=== PATIENT | female | born 1955 | race African-American/Black ===

== ENCOUNTER 2017-01-15 | Emergency (ER) | payer MEDICARE, MEDICAID ==
[2015-08-20 07:29] VITALS: BMI 45.8
[~2017-01-15] MED LIST: ASPIRIN EC81 M1; ASPIRIN EC81 M1 PO; CELEBREX200 MG PO; HYDROCHLOROTH12.5 M1 PO; ISOSORBIDE MONO30 M1 PO; NITROSTAT0.4 MG SL; PLAVIX75 MG PO; PRINIVIL20 MG PO; ZOCOR20 MG PO
[2017-01-15 00:42] LABS: BASOPHILS 0.3 % (0-2); EOSINOPHILS 1.6 % (0-7); HEMOGLOBIN 11.5 g/dL (12-16); IMMATURE GRANULOCYTES 0.3 % (0-5); MCH 26.4 pg (26.0-34.0); MCHC 31.1 g/dL (31.0-37.0); MCV 85.1 fL (80.0-100.0); MONOCYTES 9.1 % (2-11); NEUTROPHILS 54.7 % (40-80); PLATELET COUNT 218 10x3/uL (130-400); RBC 4.35 10x6/uL (4.00-5.40); RDW 13.7 % (11.5-14.5); WBC 3.9 10x3/uL (4.8-10.8)
[2017-01-15 01:03] LABS: APTT 26.1 SECONDS (22.8-39.4); INR 0.88 (0.85-1.17); PROTIME 11.8 SECONDS (11.6-15.0)
[2017-01-15 01:04] LABS: ALBUMIN 3.4 g/dL (3.4-5.0); ALKALINE PHOSPHATASE 74 U/L (46-116); ALT (SGPT) 26 U/L (10-68); BILIRUBIN - TOTAL 0.13 mg/dL (0.2-1.3); CALC OSMOLALITY 282 mosm/kg (275-300); CALCIUM 8.8 mg/dL (8.5-10.1); CARBON DIOXIDE 28.3 mmol/L (21.0-32.0); CHLORIDE - SERUM 105 mmol/L (98-107); CREATININE - SERUM 0.7 mg/dL (0.6-1.3); GLUCOSE 95 mg/dL (74-106); POTASSIUM - SERUM 3.6 mmol/L (3.5-5.1); PROTEIN - SERUM 7.7 g/dL (6.4-8.2); SODIUM 142 mmol/L (136-145); UREA NITROGEN 13 mg/dL (7-18); eGFR NON AFRICAN AMERICAN 90 mL/min (90-120)
[2017-01-15 01:10] LABS: CREATINE KINASE 119 UL (21-215)
[2017-01-15 01:12] LABS: TROPONIN-I < 0.017 ng/mL (0.000-0.060)
== END 2017-01-15 04:02 | disposition home or self-care (01) ==
LOC: D.ER
PROVIDERS: Emergency Medicine; Nurse Practitioner Acute Care
DX: R07.9 Chest pain, unspecified (principal); I10 Essential (primary) hypertension; E66.9 Obesity, unspecified

== ENCOUNTER 2017-03-02 09:08 | Outpatient (CLI) | payer MEDICARE, MEDICAID ==
--- NOTE | ~2017-03-02 | HEMODYNAMI ---
PATIENT:MARIBEL WANG MEDICAL RECORD: [id number] : 57 LOCATION:DMiriamCAT ADMISSION DATE: 03/02/17 Generatedon:03/02/201711:11 Patient name: MARIBEL WANG Patient #: [id number] SSN: : 1955 Date of study: 03/02/2017 Page: Of Hemodynamic Procedure Report Patient Data Patient Demographics Procedure consent was obtained First Name: MARIBEL Gender: Female Last Name: KATHLEEN : 1955 [facility] Initial: JOSE Age: 61 year(s) Patient #: [id number] Race: Black Additional ID: [id number] Contact details Address: [address] [place] [address] e10 State: [place] City: [place] Zip code: [address] Past Medical History Allergies: No known allergies Admission Admission Data Admission Date: 03/02/2017 Admission Time: 9:08 Weight (lbs.): 240.31 Weight (kg.): 109 Lab Results Lab Result Date: 03/02/2017 Lab Result Time: 0:00 Biochemistry Name Units Result Min Max BUN mg/dl 10 --(-*--)-- 7 18 Creatinine mg/dl 0.5 -*(----)-- 0.6 1.3 CBC Name Units Result Min Max Hemoglobin g/dl 11.6 *-(----)-- 13.5 17.5 Procedure Procedure Types Cath Procedure Diagnostic Procedure C [facility] w/Coronaries PCI Procedure Coronary Stent Initial Miscellaneous Procedures Moderate Sedation up to 30 minutes Procedure Description Procedure Date Procedure Date: 03/02/2017 Procedure Start Time: 10:45 Procedure End Time: 11:11 Procedure Staff Name Function Saman Valencia MD Performing Physician Colten Cooney RN Nurse Nazario Zelaya RT Monitor Albertina Mckay RT Scrub Procedure Data Cath Procedure Fluoroscopy Diagnostic fluoroscopy Total fluoroscopy Time: 6.9 time: 6.9 min min Diagnostic fluoroscopy Total fluoroscopy dose: dose: 1159 mGy 1159 mGy Contrast Material Contrast Material Type Amount (ml) Isovue 300 131 Entry Location Entry Primary Successful Side Size Upsize Upsize Entry Closure Succes sful Closure Location (Fr) 1 (Fr) 2 (Fr) Remarks Device Remarks Femoral Right 5 Fr 6 Fr Exoseal artery Short Estimated blood loss: 10 ml Diagnostic catheters Device Type Used For End Catheter Placement Cordis 5Fr Pigtail Procedure Catheter (MP) Cordis 5Fr JL 4.0 Procedure Catheter (MP) Cordis 5Fr 3DRC Catheter Procedure (MP) Procedure Complications No complications Procedure Medications Medication Administration Route Dosage Oxygen NC 2 l/min Heparin Flush Bag added to field 2 bags (1000units/500ml NS) 0.9% NaCl I.V. ml/hr Fentanyl I.V. 50 mcg Versed I.V. 1 mg Fentanyl I.V. 50 mcg Versed I.V. 1 mg Heparin Bolus I.V. 4000 units Heparin Bolus I.V. 4000 units Hemodynamics Rest HGB: 11.6 (g/dl) Heart Rate: 73 (bpm) Pressure Samples Time Site Value (mmHg) Purpose Heart Use Rate(bpm) 10:50 AO 121/71(93) Snapshot 67 Snapshots Pre Cath Intra NCS Post Cath Vital Signs Time Heart Resp SPO2 etCO2 UU2drlk NIBP (mmHg) Rhythm Pain Sedation Rate (ipm) (%) (mmHg) (mmHg) Status Level (bpm) 10:36:16 78 20 98 0 0 136/79(122) NSR 0 (11) 10(A) , No pain 10:41:01 71 19 100 0 0 126/69(99) NSR 0 (11) 10(A) , No pain 10:45:46 59 17 100 0 0 121/64(91) NSR 0 (11) 9(A) , No pain 10:50:28 66 18 100 0 0 116/62(88) NSR 0 (11) 9(A) , No pain 10:55:13 68 16 100 0 0 116/60(88) NSR 0 (11) 9(A) , No pain 11:00:00 71 18 100 0 0 90/39(67) NSR 0 (11) 9(A) , No pain 11:05:18 75 19 100 0 0 108/48(89) NSR 0 (11) 9(A) , No pain 11:10:00 65 18 100 0 0 124/68(102) NSR 0 (11) 10(A) , No pain Medications Time Medication Route Dose Verified Delivered Reason Notes Effectiveness by by 10:36:22 Oxygen NC 2 Saman Colten Per physician l/min Annie Cooney RN 10:36:33 Heparin Flush added 2 Saman Abel used for Bag to bags Annie Cooney RN procedure (1000units/500ml field NS) 10:36:41 0.9% NaCl I.V. ml/hr Saman Abel Per physician Annie Cooney RN 10:41:21 Fentanyl I.V. 50 Saman Abel for sedation mcg Annie Cooney RN 10:41:29 Versed I.V. 1 mg Saman Tsaiy for sedation Annie Cooney RN 10:44:56 Fentanyl I.V. 50 Saman Colten for sedation mcg Annie Cooney RN 10:45:02 Versed I.V. 1 mg Saman Abel for sedation Annie Cooney RN 10:54:55 Heparin Bolus I.V. 4000 Saman Tsaiy for units Annie Cooney RN anticoagulation 11:09:00 Heparin Bolus I.V. 4000 Saman Colten for units Annie Cooney RN anticoagulation Procedure Log Time Note 10:00:30 Colten Cooney RN sent for patient. Start room use. 10:20:31 Time tracking: Regular hours 10:20:40 Plan of Care:Hemodynamics will remain stable., Cardiac rhythm will remain stable., Comfort level will be maintained., Respiratory function will remain adequate., Patient/ family verbilizes understanding of procedure., Procedure tolerated without complication., Recovers from procedure without complications.. 10:29:44 Patient received from Pre/Post Procedure Room to CCL 1 Alert and oriented. Tansferred to table in Supine position. 10:29:45 Warm blankets applied, and carol hugger turned on for patient comfort. 10:29:46 Correct patient and procedure confirmed by team. 10::47 Signed procedure consent form obtained from patient. 10:29:47 ECG and BP/O2 sat monitors applied to patient. 10:35:14 Vital chart was started 10:36:22 Oxygen 2 l/min NC was administered by Colten Cooney RN; Per physician; 10:36:33 Heparin Flush Bag (1000units/500ml NS) 2 bags added to field was administered by Colten Cooney RN; used for procedure; 10:36:41 0.9% NaCl ml/hr I.V. was administered by Colten Cooney RN; Per physician; 10:39:29 Baseline sample Acquired. 10:39:33 Rhythm: sinus rhythm 10:39:35 Full Disclosure recording started 10:39:45 H&P Date Dictated: 03/02/2017 New H&P dictated by physician.. 10:39:46 Pre-procedure instructions explained to patient. 10:39:46 Pre-op teaching completed and patient verbalized understanding. 10:39:48 Family in waiting room. 10:39:49 Patient NPO since Midnight. 10:39:52 Is the patient allergic to Iodine/contrast media? No. 10:39:53 Is patient on blood thinner?Yes 10:39:55 ACC The patient was administered the following blood thiners within the last 24 hours: ACCPlavix 10:39:57 Patient diabetic? No. 10:39:59 Patient not . Patient is over age 55. 10:40:01 Previous problem with sedation/anesthesia? No ? 10:40:02 Snore? Yes 10:40:03 Sleep apnea? No 10:40:04 Deviated septum? No 10:40:05 Opens mouth fully? Yes 10:40:06 Sticks out tongue? Yes 10:40:08 Airway obstruction? No ? 10:40:09 Dentures? No ? 10:40:12 Pre procedure: right dorsailis pedis pulse 1+ Palpable, but thready & weak; easily obliterated 10:40:36 No Radial due to difficulty with intervention last cath. 10:40:39 Patient pain scale 0/10 ?. 10:40:52 IV patent on arrival in left forearm with 0.9% NaCl at [facility]. 10:40:54 Lab results completed and on chart. 10:40:56 Right groin area was prepped with chlora-prep and draped in sterile fashion 10:40:57 Alarms reviewed by RMiriam N. 10:40:58 Sharps counted by scrub and verified by R.N. 10:40:59 --------ALL STOP TIME OUT------ 10:41:00 Final Timeout: patient, procedure, and site verified with staff and physician. All members of the team are in agreement. 10:41:01 Right groin site verified by team. 10:41:04 Physical assessment completed. ASA score P 2 - A patient with mild systemic disease as per Saman Valencia MD. 10:41:07 Sedation plan: IV Moderate Sedation Versed, Fentanyl 10:41:21 Fentanyl 50 mcg I.V. was administered by Colten Cooney RN; for sedation; 10:41:29 Versed 1 mg I.V. was administered by Colten Cooney RN; for sedation; 10:42:08 Use device set Femoral Dx 10:42:10 Tegaderm 4 x 4 opened to sterile field. 10:42:10 Acist Hand Control opened to sterile field. 10:42:11 Acist Manifold opened to sterile field. 10:42:12 Acist Syringe opened to sterile field. 10:42:12 Bag Decanter opened to sterile field. 10:42:13 Medline Cath Pack opened to sterile field. 10:42:13 Terumo 5Fr [place] Sheath opened to sterile field. 10:42:13 St Xavier 260cm J .035 wire opened to sterile field. 10:42:15 Diagnostic Infinity 5Fr Multipack catheter opened to sterile field. 10:44:56 Fentanyl 50 mcg I.V. was administered by Colten Cooney RN; for sedation; 10:45:02 Versed 1 mg I.V. was administered by Colten Cooney RN; for sedation; 10:45:06 Procedure started. 10:45:16 Local anesthetic to right femoral artery with Lidocaine 2% by Saman Valencia MD.INITIAL ACCESS ONLY 10:48:30 Lab Result : Hemoglobin 11.6 g/dl 10:48:30 Lab Result : Creatinine 0.5 mg/dl 10:48:30 Lab Result : BUN 10 mg/dl 10:48:39 Patient Weight : 240.31 lbs 10:48:55 A 5 Fr sheath was inserted into the Right Femoral artery 10:49:00 A Cordis 5Fr Pigtail Catheter (MP) was advanced over the wire and used for Procedure. 10:49:25 LV angiography performed. 10:49:26 LV gram done using MACK 10:49:33 EF : 55 % 10:49:37 Injector settings: Ml/sec: 7, Volume: 15, 10:49:39 Catheter removed. 10:49:45 A Cordis 5Fr JL 4.0 Catheter (MP) was advanced over the wire and used for Procedure. 10:50:38 LCA angiography performed. 10:51:25 Catheter removed. 10:51:40 A Cordis 5Fr 3DRC Catheter (MP) was advanced over the wire and used for Procedure. 10:52:05 RCA angiography performed. 10:52:14 Catheter removed. 10:52:53 Terumo 6Fr [place] Sheath opened to sterile field. 10:52:53 Money360 BasixCompak Inflation Kit opened to sterile field. 10:52:53 Go TakeChargeisper J 300cm 0.014 guide wire opened to sterile field. 10:52:54 Medtronic Launcher 6Fr HS II guide catheter opened to sterile field. 10:54:17 Sheath upsized to a 6 Fr Short. 10:54:37 Study PCI Site: [place] pRCA has 85% stenosis. 10:54:51 ACC Pre-intervention EVON Flow is 3. 10:54:55 Heparin Bolus 4000 units I.V. was administered by Colten Cooney RN; for anticoagulation; 10:55:54 6 Fr HS 2 guide catheter was inserted over the wire 10:56:03 Guide Catheter removed. unable to cannulate vessel. 10:56:13 Medtronic Launcher 6Fr AR 1.0 guide catheter opened to sterile field. 10:56:28 6 Fr AR 1 guide catheter was inserted over the wire 10:56:34 Guide Catheter removed. damaged. 10:57:12 Medtronic Launcher 6Fr AR 1.0 guide catheter opened to sterile field. 10:57:18 6 Fr AR 1 guide catheter was inserted over the wire 10:58:07 Whisper wire advanced. 10:59:23 Wire advanced across lesion. 10:59:43 The [place] OTW 3.5 x 18 stent was advanced then removed because of failure to cross lesion 11:01:09 Inflation number: 1 A Mozec Rx 3.0 x 14 balloon was prepped and advanced across the Prox RCA, then inflated to 17 JAIMIE for 0:10 (min:sec). 11:01:29 Multiple inflations made at 17 Atms. 11:01:54 Balloon removed over the wire. 11:03:34 Inflation Number: 2 A Adrian OTW 3.5 x 18 stent was prepped and advanced across the Prox RCA. The stent was deployed at 21 JAIMIE for 0:10 (min:sec). 11:04:22 Stent catheter was removed intact over wire. 11:05:30 Inflation Number: 3 A Adrian OTW 3.5 x 12 stent was prepped and advanced across the Prox RCA. The stent was deployed at 13 JAIMIE for 0:10 (min:sec). 11:05:55 ACC Post-intervention EVON Flow is 3. 11:05:56 Stent catheter was removed intact over wire. 11:05:56 Wire removed. 11:05:57 Guide catheter removed. 11:06:09 Cordis 6Fr Exoseal opened to sterile field. 11:06:42 Sheath removed intact; hemostasis achieved with Exoseal to the Right Femoral artery. 11:06:46 Procedure ended.(Physican Out) 11:07:21 Fluoroscopy time 06.90 minutes. 11:07:24 Flurop Dose total: 1159 11:07:24 Fluoroscopy dose: 1159 mGy 11:07:31 Contrast amount:Isovue 300 131ml. 11:07:33 Sharps counted by scrub and verified by R.N. 11:07:38 Insertion/operative site no bleeding no hematoma. 11:07:41 Post-op/insertion site Right Femoral artery dressed using a 4 x 4 and Tegaderm. 11:07:42 Post Procedure Pulses reassessed and unchanged 11:07:45 Post-procedure physical assessment completed. ASA score P 2 - A patient with mild systemic disease as per Saman Valencia MD. 11:07:47 Post procedure rhythm: unchanged. 11:07:50 Estimated blood loss: 10 ml 11:07:52 Post procedure instruction explained to patient.Patient verbalizes understanding. 11:07:52 Patient needs reinforcement of post procedure teaching. 11:08:01 Procedure type changed to Cath procedure, Diagnostic procedure, LHC, LHC w/Coronaries, PCI procedure, Coronary Stent Initial, Miscellaneous Procedures, Moderate Sedation up to 30 minutes 11:08:05 Procedure Complication : No complications 11:08:32 Procedure and supply charges have been captured, reviewed, submitted and are correct. 11:09:00 Heparin Bolus 4000 units I.V. was administered by Colten Cooney RN; for anticoagulation; 11:10:54 Vital chart was stopped 11:10:55 See physician's report for complete and final results. 11:10:59 Report given to Pre/Post Procedure Room. 11:11:02 Patient transfered to Pre/Post Procedure Room with Stretcher. 11:11:06 Procedure ended. 11:11:06 Full Disclosure recording stopped 11:11:16 End room use (Document Last) Intervention Summary Intervention Notes Time ActionType Lesion and Equipment Action# Pressure Duration Attributes Used 10:59:43 Discard Prox RCA Adrian OTW Stent 3.5 x 18 stent 11:01:09 Inflate Prox RCA Mozec Rx 1 17 00:10 balloon 3.0 x 14 balloon 11:03:34 Place stent Prox RCA [place] OTW 2 21 00:10 3.5 x 18 stent 11:05:30 Place stent Prox RCA [place] OTW 3 13 00:10 3.5 x 12 stent Device Usage Item Name Manufacture Quantity Catalog Hospital Part Current Mini mal Lot# / Number Charge Number Stock Stock Serial# Code [facility] 4 1 [id number] [id number] 111982 [id number] 5 x 4 Acist Hand Acist 1 45502 997360 429480 693018 5 Control [employer] Inc Acist Acist 1 78175 324191 208295 365380 5 Manifold Medical Systems Inc Acist Acist 1 20856 514523 532998 321260 20 Syringe Medical Systems Inc Bag Microtek 1 2002S 993589 13379 051184 5 Decanter Medical Inc. Medline Cardinal 1 [id number] 477951 16619 991961 5 Cath Pack Health Terumo 5Fr Terumo 1 [id number] 237603 055019 222374 [address] [facility] 1 029187 004879 907616 856603 30 260cm J .035 wire Diagnostic Cardinal 1 [id number] 576227 74803 823987 30 Infinity Health 5Fr Multipack catheter Cordis 5Fr Cardinal 1 018524 5 Pigtail Health Catheter (MP) Cordis 5Fr Cardinal 1 496898 5 JL 4.0 Health Catheter (MP) Cordis 5Fr Cardinal 1 013024 5 3DRC Health Catheter (MP) Terumo 6Fr Terumo 1 JLI900 804553 690720 966756 40 [place] Sheath Merit Merit 1 AY9784 544879 422215 956202 15 BasixVa Hospitalk Medical Inflation Kit Go Go 1 [id number] 765547 742986 599621 5 Whisper J Vascular 300cm 0.014 guide wire Medtronic Medtronic 1 [id number] 293156 34263 492130 1 Launcher 6Fr HS II guide catheter Medtronic Medtronic 2 [id number] 806014 37714 502500 1 Launcher 6Fr AR 1.0 guide catheter [place] OTW Medtronic 1 [id number] 154744 8549557 939363 5 [id number] 3.5 x 18 stent Mozec Rx Cardinal 1 [id number] 932214 592524190 592510 5 UMOA71 3.0 x 14 Health balloon Adrian OTW Medtronic 1 [id number] 583185 8424884 946708 5 [id number] 3.5 x 12 stent Cordis 6Fr Cardinal 1 EX600 401267 452343 647028 10 [facility] Health Signature Audit [place] Stage Time Signature Unsigned Intra-Procedure 03/02/2017 Nazario Zelaya 11:11:31 AM RT(R) Signatures Monitor : Nazario Zelaya RT Signature : Date : Time : [place] [id number] [place] [address]
[2017-03-02] MEDS ORDERED: PROTONIX40 MG PO (09:40)
[2017-03-02] MEDS ORDERED: CARAFATE1 G/10 ML PO (09:42)
[2017-03-02] MEDS ORDERED: VALIUM5 MG PO (09:42)
[2017-03-02 09:49] VITALS: BP 125/76; BMI 44.0
[2017-03-02 10:08] LABS: CALC OSMOLALITY 277 mosm/kg (275-300); CALCIUM 9.3 mg/dL (8.5-10.1); CARBON DIOXIDE 28.1 mmol/L (21.0-32.0); CHLORIDE - SERUM 107 mmol/L (98-107); CREATININE - SERUM 0.5 mg/dL (0.6-1.3); GLUCOSE 106 mg/dL (74-106); POTASSIUM - SERUM 3.5 mmol/L (3.5-5.1); SODIUM 140 mmol/L (136-145); UREA NITROGEN 10 mg/dL (7-18); eGFR NON AFRICAN AMERICAN > 90 mL/min (90-120)
[2017-03-02 10:24] LABS: BASOPHILS 0.3 % (0-2); EOSINOPHILS 1.6 % (0-7); HEMATOCRIT 37.2 % (36.0-48.0); HEMOGLOBIN 11.6 g/dL (12-16); IMMATURE GRANULOCYTES 0.3 % (0-5); LYMPHOCYTES 28.7 % (15-50); MCH 25.9 pg (26.0-34.0); MCHC 31.2 g/dL (31.0-37.0); MEAN PLATELET VOLUME 8.8 fL (7.4-10.4); MONOCYTES 11.9 % (2-11); NEUTROPHILS 57.2 % (40-80); PLATELET COUNT 245 10x3/uL (130-400); RBC 4.48 10x6/uL (4.00-5.40); RDW 13.3 % (11.5-14.5); WBC 3.1 10x3/uL (4.8-10.8)
--- NOTE | 2017-03-02 11:35 | NUR ---
1132 PT DENIES ANY C/O. DRESSING CDI RIGHT GROIN. PT DENIES NEEDS AT THIS TIME. CALL LIGHT IN REACH.
--- NOTE | 2017-03-02 11:50 | NUR ---
1150 PT SLEEPING, AWAKENS EASILY, DENIES ANY C/O. DRESSING CDI, FAMILY AT BEDSIDE.
--- NOTE | 2017-03-02 12:15 | NUR ---
1215 PT DENIES ANY C/O, DRESSING CDI. PEDAL PULSES PALPABLE, FAMILY AT BEDSIDE.
--- NOTE | 2017-03-02 12:19 | NUR ---
1120 RECEIVED PT FROM ALLERGY SPECIALIST. PT IS DROWSY. DENIES ANY C/O PAIN OR NAUSEA. IV PATENT AND INFUSING PER ORDERS. NSR, DENIES ANY C/O CHEST PAIN. DRESSING TO RIGHT GROIN IS CDI, AREA IS SOFT AND NONTENDER. PEDAL PULSES PALPABLE.
--- NOTE | 2017-03-02 13:45 | NUR ---
1345 PT AWAKE, DENIES ANY C/O. DRESSING TO RIGHT GROIN IS CDI, AREA IS SOFT AND NONTENDER. PEDAL PULSES PALPABLE, FAMILY AT BEDSIDE.
--- NOTE | 2017-03-02 14:00 | NUR ---
1300 DRESSING CDI, AREA SOFT AND NONTENDER. PT DENIES ANY C/O. PEDAL PULSES PALPABLE, CAP REFILL IS BRISK. VSS.
--- NOTE | 2017-03-02 14:00 | NUR ---
1400 PT SLEEPING, AWAKENS EASILY. DENIES ANY C/O. DRESSING TO RIGHT GROIN IS CDI, AREA IS SOFT AND NONTENDER. SISTER AT BEDSIDE, CALL LIGHT IN REACH.
--- NOTE | 2017-03-02 14:49 | NUR ---
1445 HOB ELEVATED 45 DEGRESS, DRESSING RIGHT GROIN IS CDI, AREA IS SOFT AND NONTENDER. SANDWICH AND PO FLUIDS SERVED.
--- NOTE | 2017-03-02 15:19 | NUR ---
1515 PT HAS DERICK SANDWICH WITH NO C/O NAUSEA. IV DC'D WITH CATH INTACT. REVIEWED DC INSTRUCTIONS WITH PT AND SISTER WHO VERBALZIZE UNDERSTANDING. PLAVIX PRESCRIPTION, STENT CARD, HOMECARE BOOKLET AND EXOSEAL BOOKLET TO PATIENT. PT DRESSING FOR DC TO HOME.
--- NOTE | 2017-03-02 15:45 | NUR ---
1540 ASSISTED PT TO THE BATHROOM, PT HAS VOIDED QS. AWAITING PT'S RIDE HOME. 1545 PT'S RIDE IS HERE, ESCORTED PT TO PRIVATE AUTO VIA WC WITH DAUGHTER DRIVING HER HOME. PT DENIES ANY C/O UPON DC.
--- NOTE | 2017-03-04 13:09 | HP ---
PATIENT: MARIBEL MURRAY MEDICAL RECORD: [id number] ACCOUNT: [id number] LOCATION:ARTHUR : 57 ADMISSION DATE: 03/02/17 HISTORY AND PHYSICAL EXAMINATION ADMITTING DIAGNOSES: 1. Angina. 2. Abnormal nuclear stress test. 3. Hypertension. HISTORY OF PRESENT ILLNESS: Mrs. Murray presents with increasing anginal symptomatology, underwent nuclear stress testing revealing significant reversible ischemia, now brought for cardiac catheterization. PHYSICAL EXAMINATION: GENERAL APPEARANCE: Well-nourished, well-developed, appears stated age. Level of distress, comfortable. PSYCHIATRIC: Mental status, alert, normal affect. Orientation, oriented to time, place and person. EYES: Lids and conjunctiva, noninjected. No discharge, no pallor. ENT: Lips, teeth, gums, normal dentition. Oropharynx, no cyanosis, no pallor. NECK: Carotid arteries, bilateral normal upstroke, no bruits, no thrills. JUGULAR VEINS: No jugular venous pressure or distention. CERVICAL LYMPH NODES: Nontender, nonenlarged. THYROID: Not enlarged. Nontender. No nodules. LUNGS: Respiratory effort, unlabored. CHEST: Normal curvature. No thoracic deformity. No chest wall tenderness. Percussion, resonant. Auscultation, clear. No wheezes, no rales, no rhonchi. CARDIOVASCULAR: Precordial exam, nondisplaced. No heaves or pericardial thrills. Rate and rhythm, regular. Heart sounds, normal S1, normal S2. No S3, no gallop, no rub. Systolic murmur, not heard. Diastolic murmur, not heard. EXTREMITIES: No cyanosis, no edema. Peripheral pulses, full and equal in all extremities, except as noted. No bruits appreciated. ABDOMEN: Soft, nondistended. Normal aorta. No bruit. Nontender. No masses. Liver, nontender, no hepatomegaly. Spleen, nontender, no splenomegaly. MUSCULOSKELETAL: No joint tenderness. No joint swelling. No erythema. NEUROLOGICAL: Normal gait, normal strength, normal tone. SKIN: Warm and dry. REVIEW OF SYSTEMS: The patient reports easy bruising but reports no swollen glands. The patient reports no fever, no night sweats, no significant weight gain, no significant weight loss. No significant exercise tolerance. The patient reports no dry eyes, no irritation, no vision change. Patient reports no difficulty hearing and no ear pain. Patient reports no frequent nose bleeds or nose and sinus problems. Patient reports on arm pain on exertion. No shortness of breath while lying down. No history of heart murmur. Patient reports no cough, no wheezing or coughing up blood. Patient reports no abdominal pain, no vomiting. Normal appetite. No diarrhea and not vomiting blood. No nausea and no constipation. Patient reports no incontinence. No difficulty urinating. No hematuria. No increased frequency. Patient reports no muscle aches. No weakness, no arthralgias, no back pain. No swelling of the extremities. Patient reports no abnormal mole, no jaundice, no rashes. Reports no loss of consciousness. No weakness and no numbness. No seizures, dizziness, or headaches. The patient reports no depression, no sleep disturbance, feeling safe in a relationship and no alcohol abuse. Patient reports on fatigue. HISTORY AND PHYSICAL [id number] MARIBEL MURRAY Reports no runny nose or sinus pressure. No itching, no hives, and no frequent sneezing. OVERALL IMPRESSION: Chest pain compatible with angina with abnormal nuclear stress test, most likely she has hemodynamically significant coronary artery disease. We will proceed with coronary angiography. Further care depends upon findings of the angiography. TRANSINT:[id number] Voice Confirmation ID: [id number] DOCUMENT ID: [id number] EMIL TORRE MD at 1309 CC: [id number] DICTATION DATE: 03/02/17919 RAG GRADER: 03/02/17 1002 DEP CLI 03/02/17 [place] [id number] [place] [id number]
--- NOTE | 2017-03-04 13:09 | OP ---
PATIENT NAME: MARIBEL WANG MEDICAL RECORD: [id number] :57 LOCATION:D.CAT ADMISSION DATE: SURGEON: EMIL TORRE MD DATE OF OPERATION: 03/02/2017 PROCEDURES: 1. PTCA stent RCA. 2. Left heart catheterization. 3. Selective coronary angiography. 3. Left ventriculogram. INDICATION: Angina and coronary artery disease. PROCEDURE IN DETAIL: After informed consent was obtained and after a detailed explanation of the risks, benefits as well as alternative therapies, the patient elected to proceed with angiogram and angioplasty. The right femoral area was prepped and draped in normal sterile fashion. The right femoral artery was cannulated via modified Seldinger technique with placement of 6-[place] Citizen sheath. All catheters exchanged through this sheath. FINDINGS: The left ventriculogram was performed in standard 30-degree MACK view, reveals good cardiac wall motion throughout all segments. Overall ejection fraction estimated at 60%. SELECTIVE CORONARY ANGIOGRAPHY: 1. Left main showed no significant angiographic disease. 2. Left anterior descending has previously placed stents that are widely patent. 3. Left circumflex shows moderate irregularities, but no flow-limiting stenosis. 4. The right coronary has previously placed stents with 90% in-stent restenosis. PTCA STENT OF THE RIGHT CORONARY: The stent used was 3.5 x 18 and 3.5 x 12, both Adrian stents. Result was 0% residual stenosis. OVERALL IMPRESSION: Successful percutaneous transluminal coronary angioplasty stent of the right coronary artery going from 90% initial stenosis to 0% residual stenosis. TRANSINT:[id number] Voice Confirmation ID: [id number] DOCUMENT ID: [id number] EMIL TORRE MD at 1309 CC: [id number] DICTATION DATE: 03/02/17 1109 HEAT SET OPERATOR: 03/02/17 1215 DEP CLI 03/02/17 [place] [address]
== END 2017-03-02 15:45 | disposition home or self-care (01) ==
LOC: D.CATH 09:08
PROVIDERS: Internal Medicine Interventional Cardiology
DX: I25.119 Atherosclerotic heart disease of native coronary artery with unspecified angina pectoris (principal); I10 Essential (primary) hypertension; R94.30 Abnormal result of cardiovascular function study, unspecified; Z01.812 Encounter for preprocedural laboratory examination
CPT/HCPCS: 93458; C9600

== ENCOUNTER 2017-09-08 11:18 | Outpatient (CLI) | payer MEDICARE, MEDICAID ==
[~2017-09-08] VITALS: Ht 154.9 cm; Wt 113.6 kg
--- NOTE | ~2017-09-08 | OP ---
PATIENT NAME: MARIBEL WANG MEDICAL RECORD: [id number] :57 LOCATION:D.CAT ADMISSION DATE: SURGEON: EMIL TORRE MD DATE OF OPERATION: 09/08/2017 PROCEDURES: 1. PTCA stent RCA. 2. Left heart catheterization. 3. Selective coronary angiography. 4. Left ventriculogram. INDICATION: Angina and coronary artery disease. PROCEDURE IN DETAIL: After informed consent was obtained and after a detailed description of risks, benefits as well as alternative therapies, the patient elected to proceed with angiogram and angioplasty. The right femoral area was prepped and draped in normal sterile fashion. Right femoral artery was cannulated via modified Seldinger technique with placement of 6-Togolese sheath. All catheters exchanged through this sheath. FINDINGS: The left ventriculogram was performed in standard 30-degree MACK view, reveals good cardiac wall motion throughout all segments. Overall ejection fraction estimated 60%. SELECTIVE CORONARY ANGIOGRAPHY: 1. Left main is with no significant angiographic disease. 2. Left anterior descending has previously placed stents, these are widely patent with no significant restenosis. No disease elsewise at the LAD or its branches. 3. Left circumflex has moderate irregularities, but no flow-limiting stenosis. 4. Right coronary artery has a previously placed stent proximally with up to 80% in-stent restenosis at the ostium. PTCA STENT OF THE RCA: The stent used was a 3.5 x 12 mm [place]. Result was 0% residual stenosis. OVERALL IMPRESSION: Successful percutaneous transluminal coronary angioplasty stent of the right coronary artery going from 80% in-stent restenosis to 0% residual stenosis. TRANSINT:[id number] Voice Confirmation ID: [id number] DOCUMENT ID: [id number] EMIL TORRE MD at 1057 CC: [id number] DICTATION DATE: 09/08/17 1430 HOLTER TECHNICIAN: 09/08/17 1442 DEP CLI 09/08/[address] [address]
--- NOTE | ~2017-09-08 | HEMODYNAMI ---
PATIENT:MARIBEL WANG MEDICAL RECORD: [id number] : 57 LOCATION:D.CAT ADMISSION DATE: 09/08/17 Generatedon:09/08/201714:32 Patient name: MARIBEL WANG Patient #: [id number] : 1955 Date of study: 09/08/2017 Page: Of Hemodynamic Procedure Report Patient Data Patient Demographics Procedure consent was obtained First Name: MARIBEL Gender: Female Last Name: KATHLEEN : 1955 Middle Initial: JOSE Age: 61 year(s) Patient #: [id number] Race: Black SSN: [id number] Additional ID: [id number] Contact details [address]: [address] [place] [address] [id number] State: [place] City: [place] Zip code: [address] Past Medical History Allergies: No known allergies Admission Admission Data Admission Date: 09/08/2017 Admission Time: 11:18 Arrival Date: 09/08/2017 Arrival Time: 13:30 Admit Source: Other Insurance Payor: Medicare Height (in.): 62 BSA: 2.11 (m2) Height (cm.): 157.48 BMI: 45.91 (kg/m2) Weight (lbs.): 251 Weight (kg.): 113.85 Procedure Procedure Types Cath Procedure Diagnostic Procedure [facility] PCI Procedure Coronary Stent Coronary Stent Initial Procedure Description Procedure Date Procedure Date: 09/08/2017 Procedure Start Time: 14:12 Procedure End Time: 14:30 Procedure Staff Name Function Yifan Cooper RN Nurse Saman Valencia MD Performing Physician Rona Lyon RT Monitor Alicia Ruff RT Scrub Procedure Data Cath Procedure Fluoroscopy Diagnostic fluoroscopy Total fluoroscopy Time: 3.8 time: 3.8 min min Diagnostic fluoroscopy Total fluoroscopy dose: dose: 1254 mGy 1254 mGy Contrast Material Contrast Material Type Amount (ml) Isovue 300 108 Entry Location Entry Primary Successful Side Size Upsize Upsize Entry Closure Succes sful Closure Location (Fr) 1 (Fr) 2 (Fr) Remarks Device Remarks Femoral Right 6 Fr Exoseal artery Short Estimated blood loss: 5 ml Diagnostic catheters Device Type Used For End Catheter Placement MULTIPACK Pigtail 5 Fr LV Angiography catheter MULTIPACK 3DRC 5Fr Right Coronary catheter Angiography Procedure Complications No complications Procedure Medications Medication Administration Route Dosage Oxygen NC 2 l/min Lidocaine 2% added to field 20 Heparin Flush Bag added to field 2 bags (1000units/500ml NS) 0.9% NaCl I.V. 100 ml/hr Fentanyl I.V. 100 mcg Versed I.V. 1 mg Versed I.V. 1 mg Fentanyl I.V. 50 mcg Heparin Bolus I.V. 4000 units Nitroglycerin IC/IA I.C. 200 mcg Versed I.V. 1 mg Hemodynamics Rest BSA: 2.11 (m2) O2 Consumption: Estimated: 202.16 (ml/min) O2 Consumption indexed : Estimated:95.81 (ml/min/m) Heart Rate: 73 (bpm) Snapshots Pre Cath Intra NCS Post Cath Vital Signs Time Heart Resp SPO2 etCO2 NIBP Rhythm Pain Status Sedation Rate (ipm) (%) (mmHg) (mmHg) Level (bpm) 13:14:25 72 24 100 0 125/72(92) NSR 0 (11) , No 10(A) pain 13:18:35 77 23 96 36.5 127/77(93) NSR 0 (11) , No 10(A) pain 13:22:45 78 20 96 38.7 124/74(99) NSR 0 (11) , No 10(A) pain 13:26:55 81 16 95 0 119/75(94) NSR 0 (11) , No 10(A) pain 13:31:02 75 13 94 0 120/73(92) NSR 0 (11) , No 10(A) pain 13:35:13 72 15 95 13.4 111/69(88) NSR 0 (11) , No 10(A) pain 13:39:18 72 13 92 44.7 117/69(88) NSR 0 (11) , No 10(A) pain 13:43:28 71 18 94 0 106/64(90) NSR 0 (11) , No 10(A) pain 13:47:34 71 15 95 10.4 107/64(84) NSR 0 (11) , No 10(A) pain 13:51:40 67 15 95 13.4 107/66(79) NSR 0 (11) , No 10(A) pain 13:55:45 67 17 96 41.7 114/63(86) NSR 0 (11) , No 10(A) pain 13:59:51 79 15 95 0 118/72(95) NSR 4 (11) , 10(A) Distressing 14:04:01 68 16 92 1.4 111/67(89) NSR 4 (11) , 10(A) Distressing 14:08:07 69 16 95 0 112/67(93) NSR 4 (11) , 10(A) Distressing 14:12:13 69 16 95 39.5 112/68(80) NSR 4 (11) , 10(A) Distressing 14:16:19 70 15 94 0.7 111/71(83) NSR 4 (11) , 9(A) Distressing 14:20:26 72 14 94 49.2 112/62(85) NSR 4 (11) , 9(A) Distressing 14:24:34 75 15 93 44.7 112/63(85) NSR 4 (11) , 9(A) Distressing 14:28:42 69 16 94 47.7 116/63(93) NSR 4 (11) , 10(A) Distressing Medications Time Medication Route Dose Verified Delivered Reason Notes Effectiveness by by 13:16:42 Oxygen NC 2 Saman Buffie used for l/min Annie Cooper RN procedure 13:16:49 Lidocaine 2% added 20ml Saman Saman for local to vial Annie Valencia MD anesthetic field 13:16:59 Heparin Flush added 2 Saman Saman used for Bag to bags Annie Valencia MD procedure (1000units/500ml field NS) 13:17:13 0.9% NaCl I.V. 100 Saman Buffie Per physician ml/hr Annie Cooper RN 14:07:07 Fentanyl I.V. 100 Saman Buffie for back pain mcg Annie Cooper RN 14:11:28 Versed I.V. 1 mg Saman Buffie for sedation Annie Cooper RN 14:14:20 Versed I.V. 1 mg Saman Buffie for sedation Annie Cooper RN 14:14:25 Fentanyl I.V. 50 Saman Saha for back pain mcg Annie Cooper RN 14:18:42 Versed I.V. 1 mg Saman Davison for sedation Annie Valencia MD 14:20:49 Heparin Bolus I.V. 4000 Saman Saha for verifi ed units Annie Cooper RN anticoagulation with dr valencia 14:25:05 Nitroglycerin I.C. 200 Saman Davison for IC/IA mcg Annie Valencia MD vasodilation Procedure Log Time Note 13:02:49 Informed consent obtained and on chart 13:02:54 Diagnostic Cath Status : Elective 13:03:14 Yifan Cooper RN sent for patient. Start room use. 13:03:15 Time tracking: Regular hours 13:03:19 Plan of Care:Hemodynamics will remain stable., Cardiac rhythm will remain stable., Comfort level will be maintained., Respiratory function will remain adequate., Patient/ family verbilizes understanding of procedure., Procedure tolerated without complication., Recovers from procedure without complications.. 13:04:08 Admit Source: Other 13:04:30 Arrival Date: 09/08/2017 1:30:00 PM 13:04:48 Insurance Payor : Medicare 13:06:21 Patient Height : 62 inches 13:06:28 Patient Weight : 251 lbs 13:08:05 Patient received from Pre/Post Procedure Room to CCL 2 Alert and oriented. Tansferred to table in Supine position. 13:08:06 Correct patient and procedure confirmed by team. 13:08:06 Warm blankets applied, and carol hugger turned on for patient comfort. 13:08:08 ECG and BP/O2 sat monitors applied to patient. 13:13:13 Vital chart was started 13:13:17 Baseline sample Acquired. 13:13:22 Full Disclosure recording started 13:13:31 H&P Date Dictated: 09/07/2017 Within 30 days and on chart.. 13:13:35 Family in waiting room. 13:13:43 Is patient on blood thinner?Yes 13:13:46 ACC The patient was administered the following blood thiners within the last 24 hours: ACCPlavix 13:13:50 Patient diabetic? No. 13:13:55 Snore? Yes 13:13:56 Sleep apnea? No 13:14:01 Dentures? No ? 13:14:08 IV patent on arrival in left forearm with 0.9% NaCl at [facility]. 13:14:15 Alarms reviewed by R. N. 13:14:15 Right groin area was prepped with chlora-prep and draped in sterile fashion 13:14:16 Physician paged 13:14:16 Sharps counted by scrub and verified by R.N. 13:16:33 Rhythm: sinus rhythm 13:16:42 Oxygen 2 l/min NC was administered by Yifan Cooper RN; used for procedure; 13:16:49 Lidocaine 2% 20ml vial added to field was administered by Saman Valencia MD; for local anesthetic; 13:16:59 Heparin Flush Bag (1000units/500ml NS) 2 bags added to field was administered by Saman Valencia MD; used for procedure; 13:17:07 Pre-procedure instructions explained to patient. 13:17:08 Pre-op teaching completed and patient verbalized understanding. 13:17:11 Is the patient allergic to Iodine/contrast media? No. 13:17:12 Was the patient premedicated? No 13:17:13 0.9% NaCl 100 ml/hr I.V. was administered by Yifan Cooper RN; Per physician; 13:17:16 Previous problem with sedation/anesthesia? No ? 13:17:21 Deviated septum? No 13:17:22 Sticks out tongue? Yes 13:17:22 Opens mouth fully? Yes 13:17:24 Airway obstruction? No ? 13:17:29 Pre procedure: right dorsailis pedis pulse 2+ Normal; easily identifiable; not easily obliterated 13:17:31 Pre procedure: left dorsailis pedis pulse 2+ Normal; easily identifiable; not easily obliterated 13:17:52 Patient pain scale 0/10 ?. 13:26:05 Lab results completed and on chart. 13:26:13 Zero performed for pressure channel P1 13:30:09 Physician arrived 13:30:33 Use device set Femoral Dx 13:30:34 ACIST Syringe (90944) opened to sterile field. 13:30:35 Medline Cath Pack ([id number]) opened to sterile field. 13:30:35 Bag Decanter (2002S) opened to sterile field. 13:30:36 DIAGNOSTIC WIRE .035 260cm J wire (549094) opened to sterile field. 13:30:38 ACIST Manifold (31413) opened to sterile field. 13:30:38 ACIST Hand Control (07956) opened to sterile field. 13:30:39 DIAGNOSTIC Multipack 5Fr catheter set ([id number]) opened to sterile field. 13:30:40 Tegaderm 4 x 4 (1626W) opened to sterile field. 14:07:07 Fentanyl 100 mcg I.V. was administered by Yifan Cooper RN; for back pain; 14:10:55 Final Timeout: patient, procedure, and site verified with staff and physician. All members of the team are in agreement. 14:10:58 Right groin site verified by team. 14:11:01 Physical assessment completed. ASA score P 2 - A patient with mild systemic disease as per Saman Valencia MD. 14:11:04 Sedation plan: IV Moderate Sedation Medication:Versed, Fentanyl 14:11:24 Procedure started. 14:11:28 Versed 1 mg I.V. was administered by Yifan Cooper RN; for sedation; 14:12:19 Local anesthetic to right femoral artery with Lidocaine 2% by Saman Valencia MD.INITIAL ACCESS ONLY 14:12:42 SHEATH 6Fr Prelude ([id number]) opened to sterile field. 14:13:37 A 6 Fr Short sheath was inserted into the Right Femoral artery 14:14:20 Versed 1 mg I.V. was administered by Yifan Cooper RN; for sedation; 14:14:25 Fentanyl 50 mcg I.V. was administered by Yifan Cooper RN; for back pain; 14:14:38 A MULTIPACK Pigtail 5 Fr catheter was advanced over the wire and used for LV Angiography. 14:14:54 LV gram done using MACK 14:14:56 LV hemodynamics recorded. 14:14:58 Injector settings: Ml/sec: 10, Volume: 20, 14:15:04 EF : 60 % 14:15:35 Catheter removed. 14:15:53 GUIDE 6FR EBU 3.0 catheter ([id number]) opened to sterile field. 14:16:03 6 Fr EBU 3.0 guide catheter was inserted over the wire 14:16:29 LCA angiography performed. 14:17:47 Guide catheter removed. 14:17:56 A MULTIPACK 3DRC 5Fr catheter was advanced over the wire and used for Right Coronary Angiography. 14:18:42 Versed 1 mg I.V. was administered by Saman Valencia MD; for sedation; 14:18:50 Catheter removed. 14:19:08 GUIDE 6FR 3DRC SH catheter ([id number]) opened to sterile field. 14:19:59 Use device set ANNIE PCI 14:20:03 PERCUTANEOUS ENTRY 19GA needle opened to sterile field. 14:20:05 INFLATOR Merit BasixCompak (YT6980) opened to sterile field. 14:20:41 6 Fr 3DRC SH guide catheter was inserted over the wire 14:20:49 Heparin Bolus 4000 units I.V. was administered by Yifan Cooper RN; for anticoagulation; verified with dr valencia 14:21:14 CHOICE PT ES wire advanced. 14:21:44 GUIDE 6FR AR 2.0 catheter ([id number]) opened to sterile field. 14:22:36 Place stent Inflation Number: 1 A SAVANNAH RX 3.5 x 12 stent ([id number]) was prepped and advanced across the Prox RCA. The stent was deployed at 21 JAIMIE for 0:08 (min:sec). 14:23:04 Inflation number: 2 The stent balloon was then re-inflated across the Prox RCA to 19 JAIMIE for 0:08 (min:sec). 14:25:05 Nitroglycerin IC/IA 200 mcg I.C. was administered by Saman Valencia MD; for vasodilation; 14:25:28 Wire removed. 14:25:28 Stent catheter was removed intact over wire. 14:25:29 Guide catheter removed. 14:25:39 Sheath removed intact; hemostasis achieved with Exoseal to the Right Femoral artery. 14:25:43 Procedure ended.(Physican Out) 14:25:54 Fluoroscopy time 03.80 minutes. 14::58 Fluoroscopy dose: 1254 mGy 14:25:58 Flurop Dose total: 1254 14:26:02 Contrast amount:Isovue 300 108ml. 14:26:04 Sharps counted by scrub and verified by R.N. 14:26:06 Insertion/operative site no bleeding no hematoma. 14:26:10 Post-op/insertion site Right Femoral artery dressed using a 4 x 4 and Tegaderm. 14:27:12 Post right femoral artery:stable, clean and dry 14:27:13 Post Procedure Pulses reassessed and unchanged 14:27:15 Post-procedure physical assessment completed. ASA score P 2 - A patient with mild systemic disease as per Saman Valencia MD. 14:27:17 Post procedure rhythm: unchanged. 14:27:19 Estimated blood loss: 5 ml 14:27:21 Patient needs reinforcement of post procedure teaching. 14:27:21 Post procedure instruction explained to patient.Patient verbalizes understanding. 14:27:26 Procedure Complication : No complications 14:27:28 See physician's report for complete and final results. 14:27:35 Procedure type changed to Cath procedure, Diagnostic procedure, LHC, PCI procedure, Coronary Stent, Coronary Stent Initial 14:27:56 EXOSEAL 6Fr (EX600) opened to sterile field. 14:28:38 CHOICE PT Extra Support 182cm wire ([id number]) opened to sterile field. 14:29:46 Procedure and supply charges have been captured, reviewed, submitted and are correct. 14:30:22 Vital chart was stopped 14:30:31 Report given to Pre/Post Procedure Room. 14:30:34 Patient transfered to Pre/Post Procedure Room with Stretcher. 14:30:46 Full Disclosure recording stopped 14:30:46 Procedure ended. 14:30:50 End room use (Document Last) Intervention Summary Intervention Notes Time ActionType Lesion and Equipment Used Action# Pressure Duration Attributes 14:22:36 Place stent Prox RCA SAVANNAH RX 3.5 x 1 21 00:08 12 stent ([id number]) 14:23:04 Reinflate Prox RCA SAVANNAH RX 3.5 x 2 19 00:08 stent 12 stent balloon ([id number]) Device Usage Item Name Manufacture Quantity Catalog Number Hospital Part Current M inimal Lot# / Charge Number Stock Stock Serial# Code ACIST Syringe Acist 1 76846 651220 737351 094670 2 0 (81257) Medical Systems Inc Bag Decanter Microtek 1 [id number] 47950 969821 5 () Medical Inc. Medline Cath Cardinal 1 [id number] 589880 98760 435854 5 Pack [facility] ([id number]) DIAGNOSTIC [facility] 1 269303 574487 090195 245594 3 0 WIRE .035 260cm J wire (077273) ACIST Hand Acist 1 40781 692038 873193 679132 5 Control Medical (45509) Systems Inc ACIST Manifold Acist 1 05152 592009 546658 582314 5 (47531) Medical Systems Inc DIAGNOSTIC Cardinal 1 [id number] 695487 15232 338055 3 0 Multipack 5Fr Health catheter set (PS6016) Tegaderm 4 x 4 3M 1 1626W 110722 243220 602342 5 (1626W) SHEATH 6Fr Merit 1 [id number] 878402 712500 931666 5 Prelude Medical ([id number]) MULTIPACK Cardinal 1 121043 5 Pigtail 5 Fr Health catheter GUIDE 6FR EBU Medtronic 1 [id number] 951947 53589 243780 0 3.0 catheter ([id number]) MULTIPACK 3DRC Cardinal 1 387053 5 5Fr catheter Health GUIDE 6FR 3DRC Medtronic 1 [id number] 020763 088132 885988 1 SH catheter ([id number]) PERCUTANEOUS [facility] 1 [id number] 083201 609053 5 ENTRY 19GA needle INFLATOR Merit Merit 1 NA9983 405015 843245 123035 1 5 [facility] ([id number]) GUIDE 6FR AR Medtronic 1 [id number] 445089 80660 573756 1 2.0 catheter ([id number]) SAVANNAH RX 3.5 x Medtronic 1 [id number] 670558 3803461 093943 5 [id number] 12 stent ([id number]) EXOSEAL 6Fr Cardinal 1 EX600 378061 763343 932737 1 0 (EX600) Health CHOICE PT [place] 1 [id number] 533180 551264 521991 5 Extra Support Scientific 182cm wire ([id number]) Signature Audit [place] Stage Time Signature Unsigned Intra-Procedure 09/08/2017 Rona 2:32:29 PM Counts RT(R) Signatures Monitor : Rona Signature : Counts RT Date : Time : [facility] [address] [place] [address]
[~2017-09-08 11:18] MED LIST changes: +CARAFATE1 G/10 ML PO; +PROTONIX40 MG PO; +VALIUM5 MG PO
[2017-09-08 12:20] LABS: BASOPHILS 0.3 % (0-2); EOSINOPHILS 1.1 % (0-7); HEMATOCRIT 38.8 % (36.0-48.0); HEMOGLOBIN 12.3 g/dL (12-16); IMMATURE GRANULOCYTES 0.3 % (0-5); LYMPHOCYTES 36.8 % (15-50); MCH 26.7 pg (26.0-34.0); MCHC 31.7 g/dL (31.0-37.0); MCV 84.3 fL (80.0-100.0); MEAN PLATELET VOLUME 9.5 fL (7.4-10.4); MONOCYTES 9.7 % (2-11); NEUTROPHILS 51.8 % (40-80); PLATELET COUNT 268 10x3/uL (130-400); RDW 14.5 % (11.5-14.5); WBC 3.6 10x3/uL (4.8-10.8)
[2017-09-08 12:23] VITALS: BP 125/70; Ht 154.9 cm; Wt 113.6 kg
[2017-09-08 13:09] LABS: CALC OSMOLALITY 284 mosm/kg (275-300); CALCIUM 9.2 mg/dL (8.5-10.1); CARBON DIOXIDE 28.9 mmol/L (21.0-32.0); CHLORIDE - SERUM 105 mmol/L (98-107); CREATININE - SERUM 0.4 mg/dL (0.6-1.3); GLUCOSE 97 mg/dL (74-106); POTASSIUM - SERUM 4.1 mmol/L (3.5-5.1); SODIUM 143 mmol/L (136-145); UREA NITROGEN 12 mg/dL (7-18); eGFR NON AFRICAN AMERICAN > 90 mL/min (90-120)
== END 2017-09-08 18:40 | disposition home or self-care (01) ==
LOC: D.CATH 11:18
PROVIDERS: Internal Medicine Interventional Cardiology
DX: I25.119 Atherosclerotic heart disease of native coronary artery with unspecified angina pectoris (principal); Z01.812 Encounter for preprocedural laboratory examination
CPT/HCPCS: 93458; C9600

== ENCOUNTER 2017-09-12 20:11 | Emergency (ER) | payer MEDICARE, MEDICAID ==
[2017-09-08 12:23] VITALS: BMI 47.3
== END 2017-09-12 21:25 | disposition home or self-care (01) ==
LOC: D.ER 20:11
DX: M19.011 Primary osteoarthritis, right shoulder (principal); K21.9 Gastro-esophageal reflux disease without esophagitis; I10 Essential (primary) hypertension

== ENCOUNTER 2017-10-09 20:50 | Emergency (ER) | payer MEDICARE, MEDICAID ==
[2017-09-08 12:23] VITALS: BMI 47.3
== END 2017-10-09 22:08 | disposition home or self-care (01) ==
LOC: D.ER 20:50
DX: J02.9 Acute pharyngitis, unspecified (principal); K21.9 Gastro-esophageal reflux disease without esophagitis; I10 Essential (primary) hypertension; I25.10 Atherosclerotic heart disease of native coronary artery without angina pectoris

== ENCOUNTER 2018-04-30 15:12 | Emergency (ER) | payer MEDICARE, MEDICAID ==
[~2018-04-30] VITALS: Ht 154.9 cm; Wt 111.4 kg
[2018-04-30 15:35] VITALS: Ht 154.9 cm; Wt 111.4 kg
[2018-04-30] MEDS ORDERED: TORADOL10 MG PO (18:17)
[2018-04-30 18:39] VITALS: BP 162/81
== END 2018-04-30 18:40 | disposition home or self-care (01) ==
LOC: D.ER 15:12
DX: M19.012 Primary osteoarthritis, left shoulder (principal); M19.011 Primary osteoarthritis, right shoulder; R51 Headache; M54.2 Cervicalgia; I10 Essential (primary) hypertension

== ENCOUNTER 2019-06-02 17:05 | Emergency (ER) | payer MEDICARE, MEDICAID ==
[~2019-06-02] VITALS: Ht 154.9 cm; Wt 109.1 kg
[~2019-06-02 17:05] MED LIST changes: +TORADOL10 MG PO
[2019-06-02 17:16] VITALS: Ht 154.9 cm; Wt 109.1 kg
[2019-06-02 17:55] LABS: BASOPHILS 0.2 % (0-2); EOSINOPHILS 0.7 % (0-7); HEMATOCRIT 42.1 % (36.0-48.0); HEMOGLOBIN 13.4 g/dL (12-16); IMMATURE GRANULOCYTES 0.2 % (0-5); LYMPHOCYTES 12.2 % (15-50); MCH 28.3 pg (26.0-34.0); MCHC 31.8 g/dL (31.0-37.0); MEAN PLATELET VOLUME 8.9 fL (7.4-10.4); MONOCYTES 20.7 % (2-11); RBC 4.73 10x6/uL (4.00-5.40); WBC 4.3 10x3/uL (4.8-10.8)
[2019-06-02 17:56] LABS: PLATELET COUNT 197 10x3/uL (130-400)
[2019-06-02 18:02] LABS: CALC OSMOLALITY 274 mosm/kg (275-300); CALCIUM 9.3 mg/dL (8.5-10.1); CARBON DIOXIDE 25.4 mmol/L (21.0-32.0); CHLORIDE - SERUM 100 mmol/L (98-107); CREATININE - SERUM 0.6 mg/dL (0.6-1.3); GLUCOSE 91 mg/dL (74-106); POTASSIUM - SERUM 3.9 mmol/L (3.5-5.1); SODIUM 138 mmol/L (136-145); UREA NITROGEN 10 mg/dL (7-18); eGFR NON AFRICAN AMERICAN > 90 mL/min (90-120)
[2019-06-02 18:08] LABS: ALBUMIN 3.5 g/dL (3.4-5.0); ALKALINE PHOSPHATASE 72 U/L (46-116); ALT (SGPT) 127 U/L (10-68); BILIRUBIN - TOTAL 0.33 mg/dL (0.2-1.3)
[2019-06-02 18:14] LABS: APPEARANCE CLEAR (CLEAR); COLOR YELLOW (YELLOW); NITRITE NEGATIVE (NEGATIVE)
[2019-06-02 18:15] LABS: BILIRUBIN NEGATIVE (NEGATIVE); GLUCOSE NEGATIVE (NEGATIVE); KETONE SMALL mg/dL (NEGATIVE); PROTEIN 1+ mg/dL (NEGATIVE); UROBILINOGEN NORMAL (NORMAL)
[2019-06-02] MEDS ORDERED: ZOFRAN4 MG PO (20:07)
[2019-06-02] MEDS ORDERED: TAMIFLU75 MG PO (20:07)
[2019-06-02] MEDS ORDERED: TESSALON PERLE100 MG PO (20:07)
[2019-06-02 21:47] VITALS: BP 122/78
== END 2019-06-02 21:58 | disposition home or self-care (01) ==
LOC: D.ER 17:05
PROVIDERS: Family Medicine
DX: J11.1 Influenza due to unidentified influenza virus with other respiratory manifestations (principal); R50.9 Fever, unspecified; R11.0 Nausea; Z95.5 Presence of coronary angioplasty implant and graft

== ENCOUNTER 2019-07-28 16:27 | Emergency (ER) | payer MEDICARE, MEDICAID ==
[~2019-07-28] VITALS: Ht 154.9 cm; Wt 104.5 kg
[~2019-07-28 16:27] MED LIST changes: +TAMIFLU75 MG PO; +TESSALON PERLE100 MG PO; +ZOFRAN4 MG PO
[2019-07-28 16:29] VITALS: Ht 154.9 cm; Wt 104.5 kg
[2019-07-28] MEDS ORDERED: EC-NAPROSYN500 MG PO (17:41)
[2019-07-28 17:50] VITALS: BP 162/98
== END 2019-07-28 17:51 | disposition home or self-care (01) ==
LOC: D.ER 16:27
DX: M25.512 Pain in left shoulder (principal); M19.012 Primary osteoarthritis, left shoulder; Z95.5 Presence of coronary angioplasty implant and graft